=== PATIENT | female | born 1955 | race Caucasian/White ===

== ENCOUNTER → 2021-06-11 10:40 | Outpatient (BNVA) | payer MEDICARE, SELFPAY | PROVIDERS: Family Provider Electrodiagnostic Medicine; Visit Provider Family Medicine Adult Medicine | DX: Z00.00 Encounter for general adult medical examination without abnormal findings (principal); E66.9 Obesity, unspecified; I10 Essential (primary) hypertension; Z86.79 Personal history of other diseases of the circulatory system; R32 Unspecified urinary incontinence; D64.9 Anemia, unspecified; Z13.6 Encounter for screening for cardiovascular disorders; R74.8 Abnormal levels of other serum enzymes; L98.9 Disorder of the skin and subcutaneous tissue, unspecified; M16.12 Unilateral primary osteoarthritis, left hip; N28.9 Disorder of kidney and ureter, unspecified; Z90.5 Acquired absence of kidney; Z82.49 Family history of ischemic heart disease and other diseases of the circulatory system; Z68.33 Body mass index [BMI] 33.0-33.9, adult | CPT/HCPCS: 80053; 80061; 83036; 84443; 85025 ==

== ENCOUNTER → 2021-06-13 08:22 | Outpatient (BNVA) | payer MEDICARE, SELFPAY | PROVIDERS: Family Provider Electrodiagnostic Medicine; Visit Provider Surgery | DX: Z20.822 Contact with and (suspected) exposure to COVID-19 (principal); Z11.52 Encounter for screening for COVID-19 | CPT/HCPCS: 87635 ==

== ENCOUNTER 2021-06-19 09:21 | Day surgery (SDC) | payer MEDICARE, SELFPAY ==
[2021-06-16 13:29] VITALS: BMI 33.3
[2021-06-19 10:08] VITALS: BP 148/92; PULSE 60; RESP 18; TEMP 36.8; O2SAT 97
--- NOTE | 2021-06-19 10:24 | ANES.PREANE2 ---
Pre-Anesthetic Assessment Pre-Anesthetic Assessment: Height/Weight: Height 1.65 m Weight 90.718 kg Temp Pulse Resp BP Pulse Ox 98.2 F 60 18 148/92 97 06/19/21 10:08 06/19/21 10:08 06/19/21 10:08 06/19/21 10:08 06/19/21 10:08 Preop Diagnosis: screening colonoscopy Proposed Procedure: Operation Date: 06/19/21 11:00 Proposed Procedures p Colonoscopy 15118 z80.0(Not Applicable) - Lito Ford MD Familial anesthetic complications: None Was Beta Laury taken within 24 hours: N/A Was Clonidine taken within 24 hours: N/A Last intake: Intake Last Liquid Date 06/18/21 Last Liquid Time 20:00 Last Solid Date 06/17/21 Last Solid Time 16:00 Social: Social History: No alcohol and No tobacco Exam: Pre-Anes Outpt Exam: alert, oriented x 3, clear to auscultation bilaterally and regular rate & rhythm Airway: Cervical ROM: WNL MP: 3 Dentition: Chipped and Full CV/HEM: CV/HEM: HTN : Comments: one kidney Anesthetic Plan: ASA status: 3 Anesthesia: MAC Risk of > 500 ml blood loss (7ml/kg in children): No PFSH Anesthesia PFSH: Medical History (Updated 06/12/21 @ 06:39 by Dudley Raymundo MD) Abnormality, skin Anemia Congenital kidney disease Elevated liver enzymes Family history of heart disease History of hepatitis A Hx of heart disorder Hyperlipidemia Hypertension Incontinence in female Medicare annual wellness visit, initial Obesity (BMI 30.0-34.9) Osteoarthritis of left hip Pre-diabetes Surgical History (Updated 06/11/21 @ 11:06 by Dudley Raymundo MD) H/O bladder repair surgery H/O right nephrectomy History of abdominoplasty History of gastric bypass History of hysterectomy History of rectal surgery History of tubal ligation Family History Denies family history of Anesthesia complication Bleeding disorder Social History (Updated 06/11/21 @ 09:05 by Flores Nicholas LPN) Smoking and tobacco status: never smoked Alcohol intake: never Data Anesthesia Cardiac Studies: No Data to Display
[2021-06-19] MEDS: sodium chloride 0.9% 1,000 ML 30 ML IV (10:28)
--- NOTE | 2021-06-19 10:45 | P.HP_ITS ---
Same Day Surgery H&P Indication for Procedure/HPI DATE OF PROCEDURE: June 19, 2021 CHIEF COMPLAINT/INDICATIONFOR SURGICAL PROCEDURE: screening colonoscopy PREOP DIAGNOSIS: screening colonoscopy PLANNED PROCEDRUE: Operation Date: 06/19/21 11:00 Proposed Procedures p Colonoscopy 71016 z80.0(Not Applicable) - Lito Ford MD Medications/Allergies* Allergies/Adverse Reactions Allergy/AdvReac Type Severity Reaction Status Date / Time No Known Allergies Allergy Verified 06/11/21 08:57 Current Medications: Generic Name Dose Route Start Last Admin Trade Name Freq PRN Reason Stop Dose Admin Sodium Chloride 1,000 mls @ 30 mls/hr 06/19/21 10:00 06/19/21 10:28 Sodium Chloride 0.9% IV 06/20/21 09:59 30 mls/hr .Q24H MIGUELANGEL Administration Pertinent History/Comorbid Conditions* Medical History (Updated 06/12/21 @ 06:39 by Dudley Raymundo MD) Abnormality, skin Anemia Congenital kidney disease Elevated liver enzymes Family history of heart disease History of hepatitis A Hx of heart disorder Hyperlipidemia Hypertension Incontinence in female Medicare annual wellness visit, initial Obesity (BMI 30.0-34.9) Osteoarthritis of left hip Pre-diabetes Surgical History (Updated 06/11/21 @ 11:06 by Dudley Raymundo MD) H/O bladder repair surgery H/O right nephrectomy History of abdominoplasty History of gastric bypass History of hysterectomy History of rectal surgery History of tubal ligation Family History (Updated 04/11/21 @ 09:47 by ARIADNA Ty) Denies family history of Anesthesia complication Bleeding disorder Social History Smoking and tobacco status: never smoked Alcohol intake: never Pertinent Exam Findings alert, oriented x 3 and regular rate & rhythm Recommendations Surgery/Procedure today Coding Level of Care Code Acute Digital [employer] In[employer] for [employer]
[2021-06-19 11:24] VITALS: BP 143/91; PULSE 88; RESP 16; TEMP 36.5; O2SAT 95
[2021-06-19 11:36] VITALS: BP 146/95; PULSE 85; O2SAT 99
[2021-06-19 11:37] VITALS: RESP 18
--- NOTE | 2021-06-19 19:02 | ANE.PACU2 ---
Inpatient post-anesthesia follow up: Airway intact: Yes Vital signs: Temperature 97.7 F Pulse Rate 85 Respiratory Rate 18 Blood Pressure 146/95 Pulse Oximetry 99 Oxygen Delivery Me thod Room Air Oxygen Flow Rate 3 Fraction of Inspir ed Oxygen Hydration adequate: Yes Nausea and vomiting: No Pain level: 2 Mental status: Baseline
== END 2021-06-19 11:55 | disposition home or self-care (01) ==
PROVIDERS: PCP Electrodiagnostic Medicine; Visit Provider Surgery
PROC: 0DJD8ZZ Inspection of Lower Intestinal Tract, Via Natural or Artificial Opening Endoscopic (ICD-10-PCS; CPT 45378; principal; 2021-06-19 11:00)
DX: Z12.11 Encounter for screening for malignant neoplasm of colon (principal); Z80.0 Family history of malignant neoplasm of digestive organs; D12.2 Benign neoplasm of ascending colon; E78.5 Hyperlipidemia, unspecified; I10 Essential (primary) hypertension; E66.9 Obesity, unspecified; Z68.33 Body mass index [BMI] 33.0-33.9, adult; R73.03 Prediabetes; Z82.49 Family history of ischemic heart disease and other diseases of the circulatory system
CPT/HCPCS: 45380; 88305; 96360; J7030

== ENCOUNTER → 2021-07-07 11:12 | Outpatient (BNVA) | payer MEDICARE, SELFPAY | PROVIDERS: PCP Family Medicine Adult Medicine; Visit Provider Internal Medicine Cardiovascular Disease | DX: I10 Essential (primary) hypertension (principal); Z90.5 Acquired absence of kidney; R74.8 Abnormal levels of other serum enzymes | CPT/HCPCS: 80048; 83735 ==

== ENCOUNTER 2022-10-08 09:55 | Outpatient (CLI) | payer MEDICARE, SELFPAY ==
[2022-10-08 10:55] LABS: Basophils # 0.1 10^3/uL (0.0-0.1); Basophils % 1.5 %; Eosinophils # 0.3 10^3/uL (0.0-0.8); Hematocrit 40.6 % (37.0-47.0); Hemoglobin 12.5 g/dL (11.5-15.3); Lymphocytes # 1.5 10^3/uL (0.8-4.8); Mean Corpuscular HGB Conc 30.8 g/dL (30.0-36.0); Mean Corpuscular Hemoglobin 23.9 pg (28.0-34.0); Mean Corpuscular Volume 77.5 fl (81-99); Mean Platelet Volume 9.6 fL (7.4-10.4); Monocytes # 0.5 10^3/uL (0.2-0.9); Monocytes % 6.5 %; Neutrophils % 66.9 %; Nucleated Red Blood Cells % 0 %; Platelet Count 280 10^3/cmm (130-400); Red Blood Count 5.24 10^6/uL (4.1-5.3); Red Cell Distribution Width 16.5 % (12.1-15.1); White Blood Count 7.3 10^3/uL (4.0-10.0)
[2022-10-08 11:18] LABS: Alanine Aminotransferase 12 U/L (0-33); Albumin Level 4.1 g/dL (3.5-5.2); Alkaline Phosphatase 136 U/L (35-105); Anion Gap 15.5 (5-19); Aspartate Amino Transferase 23 U/L (0-32); Blood Urea Nitrogen 17 mg/dL (8-23); Calcium 9.3 mg/dL (8.5-10.5); Carbon Dioxide 24 mmol/L (22-29); Chloride 103 mmol/L (98-107); Globulin 3.9 g/dL (1.3-4.6); Glomerular Filtration Rate 55.1 mL/min (90-130); Glucose 100 mg/dL (65-115); Osmolality Calculated 288 mOsm/kg (285-295); Potassium 4.5 mmol/L (3.5-5.1); Sodium 138 mmol/L (136-145); Total Bilirubin 0.3 mg/dL (0.15-1.2)
[2022-10-08 11:20] LABS: Add Urine Culture? No; Bacteria Urine 1+ /hpf; Bilirubin Urine 1+ (Negative); Blood Urine Neg (Negative); Glucose Urine UA Norm (Normal); Ketones Urine Negative (Negative); Leukocyte Esterase Urine Negative (Negative); Nitrate Urine Negative (Negative); Protein Urine Neg (Negative); RBC Urine RARE /hpf (0-2); Urine Appearance Hazy (CLEAR); Urine Color Yellow (Yellow); Urobilinogen Urine Neg (Negative); WBC Urine RARE /hpf (0-5); pH Urine 5 (5-7)
[2022-10-08 11:31] LABS: HIV 1 & 2 Antigen Non-Reactive (Non-Reactiv)
[2022-10-08 11:32] LABS: HIV 1 & 2 Antibody Non-Reactive (Non-Reactiv)
[2022-10-08 11:38] LABS: Hepatitis A Antibody IgM Non-Reactive (Nonreactive); Hepatitis B Core AB, Total Non-Reactive (Nonreactive); Hepatitis B Surface AB 3.5 (11.5-1000); Hepatitis B Surface Antigen Non-Reactive (Nonreactive); Hepatitis C Virus Antibody Non-Reactive (Nonreactive)
[2022-10-13 10:15] LABS: COMPLEMENT COMPONENT C3C 171 mg/dL (83-193); COMPLEMENT COMPONENT C4C 27 mg/dL (15-57)
[2022-10-13 11:14] LABS: CENTROMERE B ANTIBODY <1.0 NEG AI (<1.0 NEG); JO-1 ANTIBODY <1.0 NEG AI (<1.0 NEG); RNP ANTIBODY <1.0 NEG AI (<1.0 NEG); SCL-70 ANTIBODY <1.0 NEG AI (<1.0 NEG); SJOGREN'S ANTIBODY (SS-A) <1.0 NEG AI (<1.0 NEG); SM ANTIBODY <1.0 NEG AI (<1.0 NEG); SS-B <1.0 NEG AI (<1.0 NEG)
[2022-10-13 11:48] LABS: COMPLEMENT, TOTAL (CH50) >60 U/mL (31-60)
[2022-10-13 15:35] LABS: THYROID PEROXIDASE ANTIBODIES 6 IU/mL (<9)
[2022-10-14 10:20] LABS: ANA PATTERN Nuclear, Homogeneous; ANA SCREEN, IFA POSITIVE (NEGATIVE); ANA TITER 1:40 titer
[2022-10-14 11:05] LABS: DNA AB (DS) CRITHIDIA,IFA NEGATIVE (NEGATIVE)
== END 2022-10-08 09:56 | disposition home or self-care (01) ==
LOC: LAB 10:03
PROVIDERS: PCP Family Medicine Adult Medicine; Visit Provider Nurse Practitioner Family
DX: M31.0 Hypersensitivity angiitis (principal)
CPT/HCPCS: 36415; 80053; 81001; 85025; 86160; 86162; 86235; 86255; 86376; 86431; 86705; 86706; 86709; 86803; 87340; 87806

== ENCOUNTER 2022-10-16 12:06 | Outpatient (CLI) | payer MEDICARE, BC, SELFPAY ==
[2022-10-16 13:12] LABS: Alanine Aminotransferase 11 U/L (0-33); Albumin Level 4.1 g/dL (3.5-5.2); Alkaline Phosphatase 134 U/L (35-105); Anion Gap 13.4 (5-19); Aspartate Amino Transferase 19 U/L (0-32); Blood Urea Nitrogen 14 mg/dL (8-23); Calcium 9.5 mg/dL (8.5-10.5); Carbon Dioxide 26 mmol/L (22-29); Chloride 101 mmol/L (98-107); Globulin 3.9 g/dL (1.3-4.6); Glomerular Filtration Rate 62.3 mL/min (90-130); Glucose 101 mg/dL (65-115); Osmolality Calculated 283 mOsm/kg (285-295); Potassium 4.4 mmol/L (3.5-5.1); Sodium 136 mmol/L (136-145); Total Bilirubin 0.2 mg/dL (0.15-1.2)
[2022-10-16 13:33] LABS: Bilirubin Urine Neg (Negative); Blood Urine Neg (Negative); Glucose Urine UA Norm (Normal); Ketones Urine Negative (Negative); Leukocyte Esterase Urine 2+ (Negative); Nitrate Urine Negative (Negative); Protein Urine Neg (Negative); RBC Urine 0-4 /hpf (0-2); Specific Gravity, Urine 1.005 (1.005-1.030); Urine Appearance Hazy (CLEAR); Urine Color Straw (Yellow); Urobilinogen Urine Norm (Negative); WBC Urine 25-40 /hpf (0-5); pH Urine 6 (5-7)
[2022-10-16 13:34] LABS: Add Urine Culture? Yes; Bacteria Urine 2+ /hpf; Squamous Epithelial Cell Urine 0-4 /hpf (0-5)
== END 2022-10-16 12:07 | disposition home or self-care (01) ==
LOC: LAB 12:13
PROVIDERS: PCP Family Medicine Adult Medicine; Visit Provider Nurse Practitioner Family
DX: M31.0 Hypersensitivity angiitis (principal)
CPT/HCPCS: 80053; 81001

== ENCOUNTER → 2023-03-17 08:07 | Outpatient (BNVA) | payer MEDICARE, SELFPAY | PROVIDERS: PCP Family Medicine Adult Medicine; Visit Provider Otolaryngology | DX: R05.3 Chronic cough (principal); R49.9 Unspecified voice and resonance disorder; Z86.16 Personal history of COVID-19; H91.90 Unspecified hearing loss, unspecified ear | CPT/HCPCS: 31575; 99204 ==

== ENCOUNTER → 2023-06-06 15:27 | Outpatient (BNVA) | payer MEDICARE, SELFPAY | PROVIDERS: PCP Family Medicine Adult Medicine; Visit Provider Emergency Medicine | DX: N39.0 Urinary tract infection, site not specified (principal) | CPT/HCPCS: 81000; 87077; 87086; 87184 ==

== ENCOUNTER → 2023-06-28 10:35 | Outpatient (BNVA) | payer MEDICARE, SELFPAY | PROVIDERS: PCP Family Medicine Adult Medicine; Visit Provider Family Medicine | DX: R39.9 Unspecified symptoms and signs involving the genitourinary system (principal); R73.03 Prediabetes; E66.9 Obesity, unspecified; R49.9 Unspecified voice and resonance disorder; E78.5 Hyperlipidemia, unspecified; F32.1 Major depressive disorder, single episode, moderate; F41.9 Anxiety disorder, unspecified; R32 Unspecified urinary incontinence; R42 Dizziness and giddiness; J45.20 Mild intermittent asthma, uncomplicated | CPT/HCPCS: 80053; 80061; 81000; 83036; 84439; 84443; 85025 ==

== ENCOUNTER → 2025-03-30 10:10 | Outpatient (BNVA) | payer MEDICARE, SELFPAY | PROVIDERS: PCP Family Medicine; Visit Provider Family Medicine | DX: I10 Essential (primary) hypertension (principal); R73.03 Prediabetes | CPT/HCPCS: 80053; 80061; 83036; 84439; 84443; 85025 ==

== ENCOUNTER 2025-07-19 07:34 | Outpatient (CLI) | payer OTHER, SELFPAY ==
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
== END 2025-07-19 07:35 | disposition home or self-care (01) ==
LOC: RAD 07:35
PROVIDERS: PCP Family Medicine; Visit Provider Family Medicine
DX: S20.219A Contusion of unspecified front wall of thorax, initial encounter (principal); X58.XXXA Exposure to other specified factors, initial encounter
CPT/HCPCS: 71250

== ENCOUNTER → 2025-09-21 10:34 | Outpatient (BNVA) | payer MEDICARE, SELFPAY | PROVIDERS: PCP Family Medicine; Visit Provider Family Medicine | DX: E04.1 Nontoxic single thyroid nodule (principal); R73.03 Prediabetes | CPT/HCPCS: 80053; 83036; 84439; 84443; 85025 ==

== ENCOUNTER 2025-09-27 10:15 | Outpatient (CLI) | payer MEDICARE, SELFPAY ==
--- NOTE | 2025-09-27 10:45 | USR_ITS ---
PROCEDURE INFORMATION: Exam: US Soft Tissue Head and Neck, Thyroid Exam date and time: 09/27/2025 10:32 AM Age: 70 years old Clinical indication: Abnormal findings; Abnormal radiologic study of neck; Additional info: Thyroid nodule TECHNIQUE: Imaging protocol: Real-time ultrasound scan of the neck with image documentation. Exam focused on the thyroid. COMPARISON: CT chest wo con [id number] 07/19/2025 07:57 AM FINDINGS: Right Lobe: 4.3 x 2.2 x 2.0 cm Left Lobe: 3.6 x 1.7 x 1.6 cm Isthmus: 0.3 cm Overall Parenchymal Echotexture: Heterogenous Thyroid nodule(s): Location: Superior right Size: 1.1 x 0.8 x 1.1 cm Composition: Solid, 2 Echogenicity: Hypoechoic, 2 Shape: Wide, 0 Margins: Smooth, 0 Echogenic Foci: None, 0 TOTAL POINTS: 4, TI-RADS 4 Location: Inferior right Size: 1.6 x 1.8 x 2.0 cm Composition: Mixed cystic and solid, 1 Echogenicity: Hypoechoic, 2 Shape: Wide, 2 Margins: Lobulated, 2 Echogenic Foci: None, 0 TOTAL POINTS: 7, TI-RADS 5 Location: Mid left Size: 0.6 x 0.5 x 1.3 cm Composition: Solid, 2 Echogenicity: Hypoechoic, 2 Shape: Wide, 0 Margins: Ill-defined, 0 Echogenic Foci: None, 0 TOTAL POINTS: 4, TI-RADS 4 US/US thyroid [id number] IMPRESSION: Bilateral thyroid nodules as above - Follow up recommendations as per the ACR TI-RADS criteria below TI-RADS Classification TR1 - Benign; no FNA TR2 - Not Suspicoius; No FNA TR3 - Mildly Suspicious; FNA if >or= 2.5cm, Follow if >or= 1.5cm TR4 - Moderately Suspicious; FNA if >or= 1.5cm, Follow if >or= 1cm TR5 - Highly Suspicous; FNA if >or= 1cm, Follow if >or= 0.5cm
== END 2025-09-27 10:16 | disposition home or self-care (01) ==
LOC: RAD 10:17
PROVIDERS: PCP Family Medicine; Visit Provider Family Medicine
DX: E04.2 Nontoxic multinodular goiter (principal)
CPT/HCPCS: 76536

== ENCOUNTER 2025-10-05 11:45 | Outpatient (CLI) | payer OTHER, SELFPAY ==
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
== END 2025-10-05 11:46 | disposition home or self-care (01) ==
LOC: RAD 11:46
PROVIDERS: PCP Family Medicine; Visit Provider Family Medicine
DX: S06.0XAA Concussion with loss of consciousness status unknown, initial encounter (principal); X58.XXXA Exposure to other specified factors, initial encounter
CPT/HCPCS: 70450